=== PATIENT | male | born 1970 | race Caucasian/White ===

== ENCOUNTER → 2018-03-05 | Day surgery (SDC) | payer OTHER ==
[2018-03-04 17:00] LABS: BASOPHILS # (AUTO) 0.1 (0.0-0.1); BASOPHILS % 1.3 % (0.0-1.0); EOSINOPHILS # (AUTO) 0.1 (0.0-0.4); HEMATOCRIT 46.7 % (38.2-49.6); HEMOGLOBIN 15.6 g/dL (14.0-18.0); LYMPHOCYTES # (AUTO) 2.9 (1.0-3.2); LYMPHOCYTES % 37.2 % (18.0-39.1); MEAN CORPUSCULAR HEMOGLOBIN 30.2 pg (28-32); MEAN CORPUSCULAR HGB CONC 33.4 g/dL (31-35); MEAN CORPUSCULAR VOLUME 90.3 fL (81-99); MONOCYTES % 12.1 % (4.4-11.3); NEUTROPHILS # (AUTO) 3.7 (2.1-6.9); NEUTROPHILS % 47.1 % (38.7-80.0); PLATELET COUNT 249 x10e3/uL (140-360); RED BLOOD COUNT 5.17 x10e6/uL (4.3-5.7); RED CELL DISTRIBUTION WIDTH 12.9 % (11.7-14.4)
[2018-03-04 17:10] LABS: INR 0.85; PROTHROMBIN TIME 12.4 seconds (11.9-14.5)
[2018-03-04 17:16] LABS: ANION GAP 15.9 mmol/L (8-16); CALCIUM 10.2 mg/dL (8.4-10.2); CREATININE, SERUM 1.38 mg/dL (0.72-1.25); POTASSIUM 3.9 mmol/L (3.5-5.1)
[2018-03-05] VITALS (11 sets, daily range): BP systolic 107–167; BP diastolic 65–88
[~2018-03-05] VITALS: Ht 180.3 cm; Wt 148.3 kg
[~2018-03-05] MED LIST: FENOFIBRATE145 MG PO; FENTANYL CITRATE/PF 100MCG/2 ML INJ ONE; FISH OIL 1,0001 EAC2 PO; GLIPIZIDE10 MG PO; HEPARIN SOD (PORCINE) 1000 UNIT/ML 30ML ONE; IOPAMIDOL 370 MG/ML 200 ML INFUS..BTL INJ ONE; LIDOCAINE HCL 2% LOCAL 20 ML VIAL ONE; LISINOPRIL-HCT1 EAC1 PO; METFORMIN HCL500 MG PO; METOPROLOL TART50 MG PO; MIDAZOLAM HCL 2 MG/2 ML VIAL ONE; NITROGLYCERIN/D5W 200 MCG/ML 250 ML ONE; PIOGLITAZONE HC45 MG PO; SODIUM CHLORIDE 0.9% 1000ML 1,000 ML ONE; VERAPAMIL HCL 2.5 MG/ML 2 ML VIAL ONE
--- OUTSIDE RECORDS SUMMARY | 2018-03-05 06:55 | XMS REPORT ---
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 prn spasm Active Not available Farxiga 10 mg tablet Take 1 tablet every day by oral route. Completed 01/14/2017 fenofibrate 160 mg tablet Take 1 tablet every day by oral route as directed for 90 days. Active Not available fenofibrate 54 mg tablet Completed 01/18/2017 Fish Oil 1000 mg : 1 tab twice a day Active Not available glipizide 5 mg tablet Take 1 tablet twice a day by oral route as directed for 90 days. Active Not available ibuprofen 800 mg tablet Take 1 tablet 3 times a day by oral route as needed. prn moderate pain Active Not available Invokana 300 mg tablet Completed 05/15/2016 Jardiance 10 mg tablet Take 1 tablet every day by oral route as directed for 30 days. Completed 10/09/2016 lisinopril 20 mg-hydrochlorothiazide 12.5 mg tablet Completed 11/19/2016 lisinopril 20 mg-hydrochlorothiazide 25 mg tablet Take 1 tablet every day by oral route as directed for 90 days. Active Not available metformin 1,000 mg tablet Take 1 tablet twice a day by oral route as directed for 90 days. Active Not available methocarbamol 750 mg tablet Completed 01/14/2017 metoprolol succinate ER 50 mg tablet,extended release 24 hr Take 1 tablet every day by oral route as directed for 90 days. Active Not available Miralax 17 gram/dose oral powder Take 17 g every day by oral route as needed. Active Not available naproxen 500 mg tablet Completed 01/14/2017 pioglitazone 30 mg tablet Take 1 tablet every day by oral route as directed for 30 days. Active Not available simvastatin 40 mg tablet Take 1 tablet every day by oral route as directed for 90 days. Active Not available Problems Name Status Onset Date Source Type 2 Diabetes Mellitus Active 01/09/2016 Hyperlipidemia Active 01/09/2016 Hypertensive Disorder Active 01/09/2016 Body Mass Index 40+ - Severely Obese Active 06/18/2017 Procedures Date Name Performed by 04/15/1979 Elbow Arthroscopy/surgery Notes: RIGHT Information not available Gastrointestinal Surgery Notes: PARTIAL LOWER INTESTINE REMOVAL: (6 INCHES):2000 Information not available 01/09/2016 Electrocardiogram [facility] [facility] [id number] [place] [address] (Work Place) Lab Results Date Name Specimen Result Interpretation Description Value Range Status Address 04/24/2017 CMP, Serum or Plasma High Alt 58 U/L 0-55 U/L Final [facility]: [address] [place] [address] [place] High Ast 45 U/L 5-34 U/L Final [facility]: [address] Luna [facility] [place] High Bun 20.8 mg/dL 8.9-20.6 mg/dL Final [facility]: [address] Alk Phos 60 unit/L 40-150 unit/L Final [facility]: [address] Luna [facility] [place] High Glucose 202 mg/dL 70-99 mg/dL Final [facility]: [address] Luna [facility] [place] Albumin 4.5 g/dL 3.5-5.0 g/dL Final [facility]: [address] Luna [address] [place] [address] Creatinine 1.04 mg/dL 0.72-1.25 mg/dL Final [facility]: [address] [place] [address], [place] eGFR Non- >60 mL/min/1.73m2 >60 mL/min/1.73m2 Final [facility]: [address] [facility] [place] Total Bilirubin 0.6 mg/dL 0.2-1.2 mg/dL Final [facility]: [address] eGFR - >60 mL/min/1.73m2 >60 mL/min/1.73m2 Final [facility]: [address] Sodium 141 mEq/L 136-145 mEq/L Final [facility]: [address] Potassium 4.4 mEq/L 3.5-5.1 mEq/L Final [facility]: [address] Chloride 101 mmol/L 98-107 mmol/L Final [facility]: [address] High Total Protein 8.6 g/dL 6.4-8.3 g/dL Final [facility]: [address] Calcium 9.9 mg/dL 8.4-10.2 mg/dL Final [facility]: [address] Co2 25.7 mmol/L 22.0-29.0 mmol/L Final [facility]: [address] Anion Gap 14 calc Final [facility]: [address] 04/24/2017 Lipid Panel, Serum Low Hdl 35 mg/dL 40-60 mg/dL Final [facility]: [address] High Triglyceride 424 mg/dL 0-149 mg/dL Final [facility]: [address] VLDL Calc. 85 mg/dL Final [facility]: [address] cholesterol/HDL Ratio 5.5 mg/dL Final [facility]: [address] non-HDL Cholesterol Calc. 159 mg/dL 0-160 mg/dL Final [facility]: [address] Cholesterol 194 mg/dL 0-199 mg/dL Final [facility]: [address] Low LDL Calc. see comment mg/dL 0-130 mg/dL Final [facility]: [address] 04/24/2017 HbA1C (Hemoglobin a1C), Blood High A1C W/eag 8.7 % 1.0-5.7 % Final [facility]: [address] Average Blood Glucose 203 mg/dL Final [facility]: [address] 01/14/2017 CMP, Serum or Plasma Alt 43 U/L 0-55 U/L Final [facility]: [address] Marie, [place] Ast 31 U/L 5-34 U/L Final [facility]: [address] Marie, [place] Bun 19.1 mg/dL 8.9-20.6 mg/dL Final [facility]: [address] Marie, [place] Alk Phos 68 unit/L 40-150 unit/L Final [facility]: [address] [facility] High Glucose 225 mg/dL 70-99 mg/dL Final [facility]: [address] [place] [address], [place] Albumin 4.3 g/dL 3.5-5.0 g/dL Final [facility]: [address] [facility] Creatinine 1.17 mg/dL 0.72-1.25 mg/dL Final [facility]: [address] Luna [address] [place] [address] eGFR Non- >60 mL/min/1.73m2 >60 mL/min/1.73m2 Final [facility]: [address] Total Bilirubin 0.5 mg/dL 0.2-1.2 mg/dL Final [facility]: [address] eGFR - >60 mL/min/1.73m2 >60 mL/min/1.73m2 Final [facility]: [address] [facility] Sodium 142 mEq/L 136-145 mEq/L Final [facility]: [address] Potassium 4.4 mEq/L 3.5-5.1 mEq/L Final [facility]: [address] Chloride 104 mmol/L 98-107 mmol/L Final [facility]: [address] High Total Protein 8.4 g/dL 6.4-8.3 g/dL Final [facility]: [address] [facility] Calcium 9.9 mg/dL 8.4-10.2 mg/dL Final [facility]: [address] [place] [address] Low Co2 21.5 mmol/L 22.0-29.0 mmol/L Final [facility]: [address] Anion Gap 17 calc Final [facility]: [address] [place] [address], [place] 01/14/2017 Lipid Panel, Serum Low Hdl 35 mg/dL 40-60 mg/dL Final [facility]: [address] High Triglyceride 496 mg/dL 0-149 mg/dL Final [facility]: [address] VLDL Calc. 99 mg/dL Final [facility]: [address] cholesterol/HDL Ratio 5.7 mg/dL Final [facility]: [address] High non-HDL Cholesterol Calc. 166 mg/dL 0-160 mg/dL Final [facility]: [address] High Cholesterol 201 mg/dL 0-199 mg/dL Final [facility]: [address] Low LDL Calc. see comment mg/dL 0-130 mg/dL Final [facility]: [address] 01/14/2017 HbA1C (Hemoglobin a1C), Blood High A1C W/eag 8.5 % 1.0-5.7 % Final [facility]: [address] Average Blood Glucose 197 mg/dL Final [facility]: [address] 10/09/2016 CMP, Serum or Plasma Alt 39 U/L 0-55 U/L Final [facility]: [address] Ast 30 U/L 5-34 U/L Final [facility]: [address] High Bun 21.4 mg/dL 8.9-20.6 mg/dL Final [facility]: [address] Alk Phos 61 unit/L 40-150 unit/L Final [facility]: [address] High Glucose 200 mg/dL 70-99 mg/dL Final [facility]: [address] Albumin 4.3 g/dL 3.5-5.0 g/dL Final [facility]: [address] Creatinine 1.14 mg/dL 0.72-1.25 mg/dL Final [facility]: [address] [place] [address], [place] eGFR Non- >60 mL/min/1.73m2 >60 mL/min/1.73m2 Final [facility]: [address] [place] [address], [place] Total Bilirubin 0.6 mg/dL 0.2-1.2 mg/dL Final [facility]: [address] [place] [address], [place] eGFR - >60 mL/min/1.73m2 >60 mL/min/1.73m2 Final [facility]: [address] [place] [address], [place] Sodium 143 mEq/L 136-145 mEq/L Final [facility]: [address] [place] [address], [place] Potassium 4.9 mEq/L 3.5-5.1 mEq/L Final [facility]: [address] [place] [address], [place] Chloride 106 mmol/L 98-107 mmol/L Final [facility]: [address] Total Protein 8.2 g/dL 6.4-8.3 g/dL Final [facility]: [address] Calcium 10.0 mg/dL 8.4-10.2 mg/dL Final [facility]: [address] [place] [address], [place] Co2 22.9 mmol/L 22.0-29.0 mmol/L Final [facility]: [address] Anion Gap 14 calc Final [facility]: [address] [place] [address], [place] 10/09/2016 Lipid Panel, Serum Low Hdl 33 mg/dL 40-60 mg/dL Final [facility]: [address] High Triglyceride 342 mg/dL 0-149 mg/dL Final [facility]: [address] VLDL Calc. 68 mg/dL Final [facility]: [address] cholesterol/HDL Ratio 6 mg/dL Final [facility]: [address] High non-HDL Cholesterol Calc. 171 mg/dL 0-160 mg/dL Final [facility]: [address] High Cholesterol 204 mg/dL 0-199 mg/dL Final [facility]: [address] LDL Calc. 103 mg/dL 0-130 mg/dL Final [facility]: [address] 10/09/2016 HbA1C (Hemoglobin a1C), Blood High A1C W/eag 8.0 % 1.0-5.7 % Final [facility]: [address] Average Blood Glucose 183 mg/dL Final [facility]: [address] 07/09/2016 CMP, Serum or Plasma Alt 29 U/L 0-55 U/L Final [facility]: [address] Ast 21 U/L 5-34 U/L Final [facility]: [address] Bun 25 mg/dL 8-26 mg/dL Final [facility]: [address] Alk Phos 66 unit/L 40-150 unit/L Final [facility]: [address] High Glucose 171 mg/dL 70-99 mg/dL Final [facility]: [address] Albumin 4.3 g/dL 3.5-5.0 g/dL Final [facility]: [address] Creatinine 1.02 mg/dL 0.72-1.25 mg/dL Final [facility]: [address] eGFR Non- >60 mL/min/1.73m2 >60 mL/min/1.73m2 Final [facility]: [address] Total Bilirubin 0.5 mg/dL 0.2-1.2 mg/dL Final [facility]: [address] eGFR - >60 mL/min/1.73m2 >60 mL/min/1.73m2 Final [facility]: [address] Sodium 143 mEq/L 137-144 mEq/L Final [facility]: [address] Potassium 4.5 mEq/L 3.5-5.0 mEq/L Final [facility]: [address] Chloride 109 mmol/L 101-110 mmol/L Final [facility]: [address] Total Protein 7.9 g/dL 6.4-8.3 g/dL Final [facility]: [address] Calcium 9.6 mg/dL 8.4-10.2 mg/dL Final [facility]: [address] Co2 22.4 mmol/L 21.0-29.0 mmol/L Final [facility]: [address] Anion Gap 12 calc Final [facility]: [address] [place] [address], [place] 07/09/2016 Lipid Panel, Serum Low Hdl 36 mg/dL 40-60 mg/dL Final [facility]: [address] High Triglyceride 220 mg/dL 0-149 mg/dL Final [facility]: [address] VLDL Calc. 44 mg/dL Final [facility]: [address] cholesterol/HDL Ratio 5 mg/dL Final [facility]: [address] non-HDL Cholesterol Calc. 149 mg/dL 0-160 mg/dL Final [facility]: [address] Cholesterol 185 mg/dL 0-199 mg/dL Final [facility]: [address] LDL Calc. 105 mg/dL 0-130 mg/dL Final [facility]: [address] [place] [address], [place] 07/09/2016 HbA1C (Hemoglobin a1C), Blood High A1C W/eag 7.1 % 1.0-5.7 % Final [facility]: [address] Average Blood Glucose 157 mg/dL Final [facility]: [address] 04/10/2016 CMP, Serum or Plasma Alt 32.0 U/L 0.0-55.0 U/L Final [facility]: [address] Ast 25.0 U/L 5.0-34.0 U/L Final [facility]: [address] Bun 17.0 mg/dL 8.0-26.0 mg/dL Final [facility]: [address] [place] Alk Phos 56.0 unit/L 40.0-150.0 unit/L Final [facility]: [address] [place] High Glucose 159.0 mg/dL 70.0-99.0 mg/dL Final [facility]: [address] [place] Albumin 4.6 g/dL 3.5-5.0 g/dL Final [facility]: [address], [place] Creatinine 1.1 mg/dL 0.7-1.3 mg/dL Final [facility]: [address] [facility] eGFR Non- >60 mL/min/1.73m2 >60.0 mL/min/1.73m2 Final [facility]: [address] [place] Total Bilirubin 0.7 mg/dL 0.2-1.2 mg/dL Final [facility]: [address] [facility] eGFR - >60 mL/min/1.73m2 >60.0 mL/min/1.73m2 Final [facility]: [address] [facility] Sodium 142.0 mEq/L 137.0-144.0 mEq/L Final [facility]: [address] [facility] Potassium 4.5 mEq/L 3.5-5.0 mEq/L Final [facility]: [address] [place] Chloride 104.0 mmol/L 101.0-110.0 mmol/L Final [facility]: [address] [facility] Total Protein 7.9 g/dL 6.4-8.3 g/dL Final [facility]: [address] [place] Calcium 9.8 mg/dL 8.4-10.2 mg/dL Final [facility]: [address] Marie, [place] Co2 28 mmol/L 21-29 mmol/L Final [facility] [address] [facility] Anion Gap 10.0 calc Final [facility]: [address] [place] 04/10/2016 Lipid Panel, Serum Low Hdl 38.0 mg/dL 40.0-60.0 mg/dL Final [facility]: [address] High Triglyceride 295.0 mg/dL 0.0-149.0 mg/dL Final [facility]: [address] VLDL Calc. 59.0 mg/dL Final [facility]: [address] cholesterol/HDL Ratio 4.5 mg/dL Final [facility]: [address] non-HDL Cholesterol Calc. 133.0 mg/dL 0.0-160.0 mg/dL Final [facility]: [address] Cholesterol 171.0 mg/dL 0.0-199.0 mg/dL Final [facility]: [address] LDL Calc. 74.0 mg/dL 0.0-130.0 mg/dL Final [facility]: [address] 04/10/2016 HbA1C (Hemoglobin a1C), Blood High A1C W/eag 6.9 % 1.0-5.7 % Final [facility]: [address] Average Blood Glucose 151.3 mg/dL Final [facility]: [address] 01/09/2016 CMP, Serum or Plasma Alt 32.0 U/L 0.0-55.0 U/L Final [facility]: [address] Ast 21.0 U/L 5.0-34.0 U/L Final [facility]: [address] Bun 20.0 mg/dL 8.0-26.0 mg/dL Final [facility]: [address] Alk Phos 65.0 unit/L 40.0-150.0 unit/L Final [facility]: [address] High Glucose 149.0 mg/dL 70.0-99.0 mg/dL Final [facility]: [address] Albumin 4.5 g/dL 3.5-5.0 g/dL Final [facility]: [address] Creatinine 1.1 mg/dL 0.7-1.3 mg/dL Final [facility]: [address] Marie, [place] eGFR Non- >60 mL/min/1.73m2 >60.0 mL/min/1.73m2 Final [facility]: [address] [facility] Total Bilirubin 0.4 mg/dL 0.2-1.2 mg/dL Final [facility]: [address] [facility] eGFR - >60 mL/min/1.73m2 >60.0 mL/min/1.73m2 Final [facility]: [address] Marie, [place] High Sodium 145.0 mEq/L 137.0-144.0 mEq/L Final [facility]: [address] [facility] High Potassium 5.1 mEq/L 3.5-5.0 mEq/L Final [facility]: [address] [place] [address] Chloride 108.0 mmol/L 101.0-110.0 mmol/L Final [facility]: [address] [facility] Total Protein 7.9 g/dL 6.4-8.3 g/dL Final [facility]: [address] [facility] Calcium 10.2 mg/dL 8.4-10.2 mg/dL Final [facility]: [address] [facility] Low Co2 21.1 mmol/L 22.0-29.0 mmol/L Final [facility]: [address] [place] [address] Anion Gap 15.9 calc Final [facility]: [address] Marie, [place] 01/09/2016 Lipid Panel, Serum Low Hdl 37.0 mg/dL 40.0-60.0 mg/dL Final [facility]: [address] [facility] High Triglyceride 393.0 mg/dL 0.0-149.0 mg/dL Final [facility]: [address] [facility] VLDL Calc. 78.6 mg/dL Final [facility]: [address] cholesterol/HDL Ratio 4.8 mg/dL Final [facility]: [address] non-HDL Cholesterol Calc. 139.0 mg/dL 0.0-160.0 mg/dL Final [facility]: [address] Cholesterol 176.0 mg/dL 0.0-199.0 mg/dL Final [facility]: [address] LDL Calc. 60.4 mg/dL 0.0-130.0 mg/dL Final [facility]: [address] [place] [address], [place] 01/09/2016 HbA1C (Hemoglobin a1C), Blood High A1C W/eag 6.8 % 1.0-5.7 % Final [facility]: [address] Average Blood Glucose 148.5 mg/dL Final [facility]: [address] [place] [address], [place] 10/05/2015 CBC W/ Auto Diff No observation recorded. 07/01/2015 CMP, Serum or Plasma No observation recorded. 03/31/2015 CMP, Serum or Plasma No observation recorded. Albumin:creatinine Ratio, Urine Type Urine Microlalbumin 30 mg/L [facility]: [address] [facility] [place] Type Urine Creatinine 100 mg/dL [facility]: [address] [facility] [place] Type A:C Ratio 30-300 mg/g (Abnormal) [facility]: [address] [facility] [place] Urinalysis, Dipstick Color Color yellow [facility]: [address] [facility] [place] Color Appearance clear [facility]: [address] [facility] [place] Color Glucose 500 [facility]: [address] [facility] [place] Color Bilirubin negative [facility]: [address] [facility] [place] Color Ketones negative [facility] [address] [facility] [place] Color Specific [place] 1.030 [facility]: [address] [facility] [place] Color Blood trace [facility]: [address] [facility] [place] Color PH 6.0 [facility]: [address] [facility] [place] Color Protein negative [facility] [address] [facility] [place] Color Urobilinogen 0.2 [facility]: [address] [facility] [place] Color Nitrites negative [facility]: [address] [facility] [place] Color Leukocytes negative [facility]: [address] [facility] [place] Albumin:creatinine Ratio, Urine Type Urine Microlalbumin 30 mg/L [facility]: [address], [place] Type Urine Creatinine 100 mg/dL [facility]: [address] [facility] [place] Type A:C Ratio >300 mg/g (High Abnormal) [facility]: [address] [facility] [place] Electrocardiogram Qrs [facility]: [address] [facility] [place] Urinalysis, Dipstick Color Glucose negative [facility]: [address] [facility] [place] Color Bilirubin negative [facility]: [address] [facility] [place] Color Ketones negative [facility]: [address] [facility] [place] Color Specific [place] 1.015 [facility]: [address] [facility] [place] Color Blood negative [facility]: [address] [facility] [place] Color PH 5.0 [facility]: [address] [facility] [place] Color Protein negative [facility]: [address], [place] Color Urobilinogen 0.2 [facility]: [address] [facility] [place] Color Nitrites negative [facility]: [address] [facility] [place] Color Leukocytes negative [facility]: [address] [facility] [place] Albumin:creatinine Ratio, Urine No observation recorded. [facility]: [address] [facility] Glucose, Fingerstick, Blood Blood Glucose: mg/dl 141 Vfp- Espy: [address] [facility], [place] Past Encounters 07/25/2017 Hyperlipidemia; Hypertensive Disorder; Type II Diabetes Mellitus Uncontrolled; Elevated Liver Enzymes Level; Body Mass Index 40+ - Severely Obese Jcarlos Aguirre MD: [address] [place] [address], Ph. 06/18/2017 Low Back Pain; Constipation; Body Mass Index 40+ - Severely Obese Sami Moody MD: [address] [phone], Ph. 04/24/2017 Hypertensive Disorder; Hyperlipidemia; Type II Diabetes Mellitus Uncontrolled; Body Mass Index 40+ - Severely Obese Jcarlos Aguirre MD: [address] [place] [phone], Ph. 01/14/2017 Type II Diabetes Mellitus Uncontrolled; Hyperlipidemia; Hypertensive Disorder; Influenza Vaccination; Vaccination for Diphtheria, Pertussis, and Tetanus; Pneumococcal Vaccination Jcarlos Aguirre MD: [address] [place] [phone], Ph. 11/19/2016 Acute Low Back Pain; Body Mass Index 40+ - Severely Obese Jose Ayon MD: [address] [place] [phone], Ph. 10/09/2016 Hyperlipidemia; Hypertensive Disorder; Type II Diabetes Mellitus Uncontrolled; Immunization; Body Mass Index 40+ - Severely Obese Jcarlos Aguirre MD: [address] [place] [phone], Ph. 07/09/2016 Hyperlipidemia; Hypertensive Disorder; Type II Diabetes Mellitus Uncontrolled; Microalbuminuria Jcarlos Aguirre MD: [address] [place] [phone], Ph. 05/09/2016 Type II Diabetes Mellitus Uncontrolled; Hyperlipidemia; Benign Essential Hypertension Jcarlos Aguirre MD: [address] [place] [phone], Ph. 04/10/2016 Hypertensive Disorder; Hyperlipidemia; Type II Diabetes Mellitus Uncontrolled Jcarlos Aguirre MD: [address] [place] [phone], Ph. 01/09/2016 Type II Diabetes Mellitus Uncontrolled; Hyperlipidemia; Essential Hypertension Jcarlos Aguirre MD: [address] [place] [address], Ph. Social History Smoking Status Never Smoker Vaccine List Vaccine Type pneumococcal polysaccharide PPV23 01/14/20170.5 mL Plan of Care Patient Instructions F/U w/ PCP fit to rtw 11/20 no restictions rtc prn Reminders Provider Appointments None recorded. Lab None recorded. Referral None recorded. Procedures None recorded. Surgeries None recorded. Imaging None recorded. Vitals 07/25/2017 08:00AM Est Patient Height Weight BMI Blood Pressure 5 ft 11 in 311 lbs 43.4 kg/m2 116/80 mm[Hg] 06/18/2017 03:15PM Work In Same Day Height Weight BMI Blood Pressure 5 ft 11 in 310 lbs 43.2 kg/m2 138/88 mm[Hg] 04/24/2017 08:00AM Est Patient Height Weight BMI Blood Pressure 5 ft 11 in 312 lbs 43.5 kg/m2 132/80 mm[Hg] 01/14/2017 08:00AM Est Patient Height Weight BMI Blood Pressure 5 ft 11 in 300 lbs 41.8 kg/m2 (1) 140/86 mm[Hg] (2) 126/90 mm[Hg] 11/19/2016 02:15PM Est Patient Height Weight BMI Blood Pressure 5 ft 11 in 304 lbs 42.4 kg/m2 110/76 mm[Hg] 10/09/2016 08:00AM Est Patient Height Weight BMI Blood Pressure 5 ft 11 in 300 lbs 41.8 kg/m2 (1) 148/92 mm[Hg] (2) 140/94 mm[Hg] 07/09/2016 08:00AM Est Patient Height Weight BMI Blood Pressure 5 ft 11 in 292 lbs 40.7 kg/m2 133/83 mm[Hg] 05/09/2016 09:00AM Est Patient Height Weight BMI Blood Pressure 5 ft 11 in 289 lbs 40.3 kg/m2 (1) 161/103 mm[Hg] (2) 152/97 mm[Hg] 04/10/2016 08:00AM Est Patient Height Weight BMI Blood Pressure 5 ft 11 in 283 lbs 39.5 kg/m2 (1) 137/95 mm[Hg] (2) 122/87 mm[Hg] 01/09/2016 08:15AM Est Patient Height Weight BMI Blood Pressure 5 ft 11 in 284 lbs 39.6 kg/m2 (1) 142/91 mm[Hg] (2) 125/92 mm[Hg]
--- NOTE | 2018-03-05 13:39 | Operative Report ---
DATE OF PROCEDURE: March 05, 2018 PROCEDURES PERFORMED 1. Conscious sedation, 30 minutes. 2. Selective coronary angiography x2. 3. Left heart catheterization. PREPROCEDURE DIAGNOSES 1. Chest pain. 2. Abnormal stress test. POSTPROCEDURE DIAGNOSIS: No obstructive coronary artery disease. ESTIMATED BLOOD LOSS: Less than 20 mL. SPECIMENS REMOVED: None. PROCEDURE DETAILS: After informed consent was obtained, the patient was brought to the cardiac catheterization laboratory in a fasting and nonsedated state. Bilateral groins were prepped and draped in the usual sterile fashion. Lidocaine 2% was infiltrated over the right anterior groin for local anesthesia. Using a micropuncture needle, the right anterior wrist was prepped and draped in the usual sterile fashion. Using ultrasound guidance, the right radial artery was accessed via modified Seldinger technique and a 6-[place] Slender sheath was placed. Next, diagnostic coronary angiography and left heart catheterization were performed using a TIG catheter. This was removed over the wire. Hemostasis was achieved via a TR band. Patient tolerated the procedure well with no immediate complications and transferred back to her room in stable condition. PROCEDURAL FINDINGS 1. Left main coronary artery is large and patent without significant coronary artery disease. 2. The left anterior descending coronary artery is a medium caliber vessel without significant coronary artery disease. 3. The diagonal branches are patent without disease. 4. The left circumflex coronary artery is the dominant vessel and provides 2 obtuse marginal vessels in addition to the left posterior descending coronary artery. 5. The right coronary artery is small and nondominant without disease. 6. The left ventricular end-diastolic pressure is 18 mmHg with no aortic valve gradient upon pullback. IMPRESSION AND PLAN: This is a 47-year-old gentleman who was found to have chest pain and abnormal stress test with cardiovascular risk factors. Coronary angiography today revealed no significant coronary artery disease. Continue medical management. Job#: [id number]
== END | disposition home or self-care (01) ==
LOC: CATH LAB 06:51
PROVIDERS: ATTEND Internal Medicine Cardiovascular Disease
DX: R07.9 Chest pain, unspecified (principal); R94.39 Abnormal result of other cardiovascular function study; I25.10 Atherosclerotic heart disease of native coronary artery without angina pectoris; I10 Essential (primary) hypertension; E78.2 Mixed hyperlipidemia; E11.59 Type 2 diabetes mellitus with other circulatory complications; Z79.84 Long term (current) use of oral hypoglycemic drugs; E66.09 Other obesity due to excess calories; Z68.42 Body mass index [BMI] 45.0-49.9, adult; Z01.812 Encounter for preprocedural laboratory examination; Z82.49 Family history of ischemic heart disease and other diseases of the circulatory system
CPT/HCPCS: 36415 ×2; 80048; 82948; 85025; 85610; 93458; C1769; C1887; J1644; J2001; J2250; J7030; Q9967